=== PATIENT | male | born 1950 | race Caucasian/White ===

== ENCOUNTER 2023-08-03 12:49 | Outpatient (CLI) | payer MEDICARE, BC, SELFPAY | END 2023-08-03 12:50 | disposition home or self-care (01) | LOC: WOUND 12:53 | PROVIDERS: PCP Family Medicine; Visit Provider Nurse Practitioner Family | DX: I87.331 Chronic venous hypertension (idiopathic) with ulcer and inflammation of right lower extremity (principal); E11.622 Type 2 diabetes mellitus with other skin ulcer; L97.818 Non-pressure chronic ulcer of other part of right lower leg with other specified severity; I87.2 Venous insufficiency (chronic) (peripheral); I89.0 Lymphedema, not elsewhere classified | CPT/HCPCS: 11042; 11045; G0463 ==

== ENCOUNTER 2023-08-10 15:06 | Outpatient (CLI) | payer MEDICARE, BC, SELFPAY | END 2023-08-10 15:07 | disposition home or self-care (01) | LOC: WOUND 15:06 | PROVIDERS: PCP Family Medicine; Visit Provider Nurse Practitioner Family | DX: I87.331 Chronic venous hypertension (idiopathic) with ulcer and inflammation of right lower extremity (principal); I87.2 Venous insufficiency (chronic) (peripheral); E11.622 Type 2 diabetes mellitus with other skin ulcer; L97.818 Non-pressure chronic ulcer of other part of right lower leg with other specified severity | CPT/HCPCS: 11042; 11045 ==

== ENCOUNTER 2023-08-17 10:30 | Outpatient (CLI) | payer MEDICARE, BC, SELFPAY | END 2023-08-17 10:31 | disposition home or self-care (01) | LOC: WOUND 10:30 | PROVIDERS: PCP Family Medicine; Visit Provider Physician Assistant | DX: I87.331 Chronic venous hypertension (idiopathic) with ulcer and inflammation of right lower extremity (principal); I87.2 Venous insufficiency (chronic) (peripheral); L97.812 Non-pressure chronic ulcer of other part of right lower leg with fat layer exposed; I89.0 Lymphedema, not elsewhere classified | CPT/HCPCS: 97597 ==

== ENCOUNTER 2023-08-22 13:44 | Outpatient (CLI) | payer MEDICARE, BC, SELFPAY | END 2023-08-22 13:45 | disposition home or self-care (01) | LOC: WOUND 13:44 | PROVIDERS: PCP Family Medicine; Visit Provider Nurse Practitioner Family | DX: I87.331 Chronic venous hypertension (idiopathic) with ulcer and inflammation of right lower extremity (principal); E11.622 Type 2 diabetes mellitus with other skin ulcer; L97.812 Non-pressure chronic ulcer of other part of right lower leg with fat layer exposed | CPT/HCPCS: 11042; 11045 ==

== ENCOUNTER 2023-08-31 13:01 | Outpatient (CLI) | payer MEDICARE, BC, SELFPAY | END 2023-08-31 13:02 | disposition home or self-care (01) | LOC: WOUND 13:01 | PROVIDERS: PCP Family Medicine; Visit Provider Nurse Practitioner Family | DX: I87.331 Chronic venous hypertension (idiopathic) with ulcer and inflammation of right lower extremity (principal); I87.2 Venous insufficiency (chronic) (peripheral); L97.818 Non-pressure chronic ulcer of other part of right lower leg with other specified severity | CPT/HCPCS: 11042; 11045 ==

== ENCOUNTER 2023-09-07 13:06 | Outpatient (CLI) | payer MEDICARE, BC, SELFPAY | END 2023-09-07 13:07 | disposition home or self-care (01) | LOC: WOUND 13:06 | PROVIDERS: PCP Family Medicine; Visit Provider Nurse Practitioner Family | DX: I87.331 Chronic venous hypertension (idiopathic) with ulcer and inflammation of right lower extremity (principal); I87.2 Venous insufficiency (chronic) (peripheral); E11.622 Type 2 diabetes mellitus with other skin ulcer; L97.818 Non-pressure chronic ulcer of other part of right lower leg with other specified severity | CPT/HCPCS: 11042; 11045 ==

== ENCOUNTER 2023-09-14 14:05 | Outpatient (CLI) | payer MEDICARE, BC, SELFPAY | END 2023-09-14 14:06 | disposition home or self-care (01) | LOC: WOUND 14:05 | PROVIDERS: PCP Family Medicine; Visit Provider Nurse Practitioner Family | DX: I87.331 Chronic venous hypertension (idiopathic) with ulcer and inflammation of right lower extremity (principal); I87.2 Venous insufficiency (chronic) (peripheral); E11.622 Type 2 diabetes mellitus with other skin ulcer; L97.818 Non-pressure chronic ulcer of other part of right lower leg with other specified severity; I89.0 Lymphedema, not elsewhere classified | CPT/HCPCS: 15271; 15272; Q4121 ==

== ENCOUNTER 2023-09-21 13:11 | Outpatient (CLI) | payer MEDICARE, BC, SELFPAY | END 2023-09-21 13:12 | disposition home or self-care (01) | LOC: WOUND 13:11 | PROVIDERS: PCP Family Medicine; Visit Provider Nurse Practitioner Family | DX: I87.331 Chronic venous hypertension (idiopathic) with ulcer and inflammation of right lower extremity (principal); I87.2 Venous insufficiency (chronic) (peripheral); L97.818 Non-pressure chronic ulcer of other part of right lower leg with other specified severity; I89.0 Lymphedema, not elsewhere classified | CPT/HCPCS: 97597; 97598 ==

== ENCOUNTER 2023-09-28 13:10 | Outpatient (CLI) | payer MEDICARE, BC, SELFPAY | END 2023-09-28 13:11 | disposition home or self-care (01) | LOC: WOUND 13:10 | PROVIDERS: PCP Family Medicine; Visit Provider Nurse Practitioner Family | DX: I87.331 Chronic venous hypertension (idiopathic) with ulcer and inflammation of right lower extremity (principal); E11.622 Type 2 diabetes mellitus with other skin ulcer; L97.818 Non-pressure chronic ulcer of other part of right lower leg with other specified severity; I89.0 Lymphedema, not elsewhere classified | CPT/HCPCS: 15271; 15272; Q4121 ==

== ENCOUNTER 2023-10-05 13:03 | Outpatient (CLI) | payer MEDICARE, BC, SELFPAY | END 2023-10-05 13:04 | disposition home or self-care (01) | LOC: WOUND 13:03 | PROVIDERS: PCP Family Medicine; Visit Provider Nurse Practitioner Family | DX: I87.2 Venous insufficiency (chronic) (peripheral) (principal); I87.331 Chronic venous hypertension (idiopathic) with ulcer and inflammation of right lower extremity; E11.622 Type 2 diabetes mellitus with other skin ulcer; L97.818 Non-pressure chronic ulcer of other part of right lower leg with other specified severity; I89.0 Lymphedema, not elsewhere classified | CPT/HCPCS: 11042; G0463 ==

== ENCOUNTER 2023-10-12 13:06 | Outpatient (CLI) | payer MEDICARE, BC, SELFPAY | END 2023-10-12 13:07 | disposition home or self-care (01) | LOC: WOUND 13:06 | PROVIDERS: PCP Family Medicine; Visit Provider Nurse Practitioner Family | DX: I87.331 Chronic venous hypertension (idiopathic) with ulcer and inflammation of right lower extremity (principal); I87.2 Venous insufficiency (chronic) (peripheral); E11.622 Type 2 diabetes mellitus with other skin ulcer; I89.0 Lymphedema, not elsewhere classified; L97.818 Non-pressure chronic ulcer of other part of right lower leg with other specified severity | CPT/HCPCS: 15271; Q4121 ==

== ENCOUNTER 2023-10-19 12:55 | Outpatient (CLI) | payer MEDICARE, BC, SELFPAY | END 2023-10-19 12:56 | disposition home or self-care (01) | LOC: WOUND 12:56 | PROVIDERS: PCP Family Medicine; Visit Provider Nurse Practitioner Family | DX: I87.311 Chronic venous hypertension (idiopathic) with ulcer of right lower extremity (principal); I87.2 Venous insufficiency (chronic) (peripheral); E11.622 Type 2 diabetes mellitus with other skin ulcer; L97.812 Non-pressure chronic ulcer of other part of right lower leg with fat layer exposed; I89.0 Lymphedema, not elsewhere classified | CPT/HCPCS: 11042 ==

== ENCOUNTER 2023-10-24 12:41 | Outpatient (CLI) | payer MEDICARE, BC, SELFPAY | END 2023-10-24 12:42 | disposition home or self-care (01) | LOC: WOUND 12:41 | PROVIDERS: PCP Family Medicine; Visit Provider Nurse Practitioner Family | DX: I87.331 Chronic venous hypertension (idiopathic) with ulcer and inflammation of right lower extremity (principal); L97.812 Non-pressure chronic ulcer of other part of right lower leg with fat layer exposed | CPT/HCPCS: 15271; Q4121 ==

== ENCOUNTER 2023-10-31 13:33 | Outpatient (CLI) | payer MEDICARE, BC, SELFPAY | END 2023-10-31 13:34 | disposition home or self-care (01) | LOC: WOUND 13:34 | PROVIDERS: PCP Family Medicine; Visit Provider Nurse Practitioner Family | DX: I87.331 Chronic venous hypertension (idiopathic) with ulcer and inflammation of right lower extremity (principal); I87.2 Venous insufficiency (chronic) (peripheral); E11.622 Type 2 diabetes mellitus with other skin ulcer; L97.812 Non-pressure chronic ulcer of other part of right lower leg with fat layer exposed | CPT/HCPCS: 97597 ==

== ENCOUNTER 2023-11-07 13:33 | Outpatient (CLI) | payer MEDICARE, BC, SELFPAY | END 2023-11-07 13:34 | disposition home or self-care (01) | LOC: WOUND 13:34 | PROVIDERS: PCP Family Medicine; Visit Provider Nurse Practitioner Family | DX: I87.331 Chronic venous hypertension (idiopathic) with ulcer and inflammation of right lower extremity (principal); I87.2 Venous insufficiency (chronic) (peripheral); E11.622 Type 2 diabetes mellitus with other skin ulcer; L97.812 Non-pressure chronic ulcer of other part of right lower leg with fat layer exposed; I89.0 Lymphedema, not elsewhere classified | CPT/HCPCS: 11042 ==

== ENCOUNTER 2023-11-14 13:28 | Outpatient (CLI) | payer MEDICARE, BC, SELFPAY | END 2023-11-14 13:29 | disposition home or self-care (01) | LOC: WOUND 13:28 | PROVIDERS: PCP Family Medicine; Visit Provider Nurse Practitioner Family | DX: I87.331 Chronic venous hypertension (idiopathic) with ulcer and inflammation of right lower extremity (principal); I87.2 Venous insufficiency (chronic) (peripheral); L97.812 Non-pressure chronic ulcer of other part of right lower leg with fat layer exposed | CPT/HCPCS: 15271; Q4121 ==

== ENCOUNTER 2023-11-21 13:32 | Outpatient (CLI) | payer MEDICARE, BC, SELFPAY | END 2023-11-21 13:33 | disposition home or self-care (01) | LOC: WOUND 13:33 | PROVIDERS: PCP Family Medicine; Visit Provider Physician Assistant Surgical | DX: I87.331 Chronic venous hypertension (idiopathic) with ulcer and inflammation of right lower extremity (principal); I87.2 Venous insufficiency (chronic) (peripheral); E11.622 Type 2 diabetes mellitus with other skin ulcer; L97.812 Non-pressure chronic ulcer of other part of right lower leg with fat layer exposed | CPT/HCPCS: 11042 ==

== ENCOUNTER 2023-11-28 13:35 | Outpatient (CLI) | payer MEDICARE, BC, SELFPAY | END 2023-11-28 13:36 | disposition home or self-care (01) | LOC: WOUND 13:35 | PROVIDERS: PCP Family Medicine; Visit Provider Nurse Practitioner Family | DX: I87.331 Chronic venous hypertension (idiopathic) with ulcer and inflammation of right lower extremity (principal); I87.2 Venous insufficiency (chronic) (peripheral); L97.812 Non-pressure chronic ulcer of other part of right lower leg with fat layer exposed; E11.622 Type 2 diabetes mellitus with other skin ulcer | CPT/HCPCS: 15271; Q4121 ==

== ENCOUNTER 2023-12-05 13:28 | Outpatient (CLI) | payer MEDICARE, BC, SELFPAY | END 2023-12-05 13:29 | disposition home or self-care (01) | LOC: WOUND 13:28 | PROVIDERS: PCP Family Medicine; Visit Provider Nurse Practitioner Family | DX: I87.331 Chronic venous hypertension (idiopathic) with ulcer and inflammation of right lower extremity (principal); I87.2 Venous insufficiency (chronic) (peripheral); E11.622 Type 2 diabetes mellitus with other skin ulcer; L97.812 Non-pressure chronic ulcer of other part of right lower leg with fat layer exposed | CPT/HCPCS: 97597 ==

== ENCOUNTER 2023-12-12 13:36 | Outpatient (CLI) | payer MEDICARE, BC, SELFPAY | END 2023-12-12 13:37 | disposition home or self-care (01) | LOC: WOUND 13:36 | PROVIDERS: PCP Family Medicine; Visit Provider Nurse Practitioner Family | DX: I87.331 Chronic venous hypertension (idiopathic) with ulcer and inflammation of right lower extremity (principal); I87.2 Venous insufficiency (chronic) (peripheral); L97.818 Non-pressure chronic ulcer of other part of right lower leg with other specified severity | CPT/HCPCS: 97602 ==

== ENCOUNTER 2023-12-26 13:32 | Outpatient (CLI) | payer MEDICARE, BC, SELFPAY | END 2023-12-26 13:33 | disposition home or self-care (01) | LOC: WOUND 13:32 | PROVIDERS: PCP Family Medicine; Visit Provider Nurse Practitioner Family | DX: I87.2 Venous insufficiency (chronic) (peripheral) (principal); E11.622 Type 2 diabetes mellitus with other skin ulcer; L97.818 Non-pressure chronic ulcer of other part of right lower leg with other specified severity; I89.0 Lymphedema, not elsewhere classified | CPT/HCPCS: G0463 ==

== ENCOUNTER 2024-01-09 13:34 | Outpatient (CLI) | payer MEDICARE, BC, SELFPAY | END 2024-01-09 13:35 | disposition home or self-care (01) | LOC: WOUND 13:34 | PROVIDERS: PCP Family Medicine; Visit Provider Nurse Practitioner Family | DX: I87.2 Venous insufficiency (chronic) (peripheral) (principal); I89.0 Lymphedema, not elsewhere classified | CPT/HCPCS: G0463 ==